=== PATIENT | female | born 1995 | race Caucasian/White ===

== ENCOUNTER → 2016-12-01 | Outpatient (CLI) | payer BC | END | disposition home or self-care (01) | LOC: C.RDSM 12:28 | PROVIDERS: ATTEND Family Medicine Sports Medicine | DX: M25.571 Pain in right ankle and joints of right foot (principal) ==

== ENCOUNTER → 2016-12-10 | Outpatient (CLI) | payer BC ==
--- NOTE | 2016-12-10 08:59 | DIAGNOSTIC IMAGING REPORT ---
RIGHT LOWER EXT JOINT WITHOUT CLINICAL HISTORY: R ANKLE/HIND FOOT PAIN Right pain TECHNIQUE: Multi axial MRI acquisition COMPARISON STUDY: None FINDINGS: Focus of bone marrow edema involving the distal fibular shaft. Small amount of infiltrative change of the surrounding soft tissues and periosteal region. Signal characteristics of all remaining osseous structures are unremarkable. All major ligamentous and tendinous structures are intact. The medial and lateral collateral ligament complexes are intact. Signal characteristics of the muscular structures are unremarkable. IMPRESSION: 1. Focal bone marrow edematous change of the distal fibula consistent with a stress type phenomenon. 2. Localized surrounding periostitis. 3. All remaining components of the study are unremarkable. 4. No significant ligamentous or tendinous disruption. The above report was generated using voice recognition software. It may contain grammatical, syntax or spelling errors. Electronically signed by: Tio Sinclair M.D. 12/10/2016 8:58 AM Dictated Date/Time: 12/10/2016 8:53 AM
== END | disposition home or self-care (01) ==
LOC: C.MRI 07:52
PROVIDERS: ATTEND Family Medicine Sports Medicine
DX: M25.571 Pain in right ankle and joints of right foot (principal)